=== PATIENT | female | born 1930 | race Caucasian/White ===

== ENCOUNTER 2017-03-17 21:33 | Emergency (ER) | payer MEDICARE ==
--- NOTE | 2017-03-17 22:22 | RAD ---
SEMIUPRIGHT PORTABLE FRONTAL CHEST RADIOGRAPH 03/17/17 COMPARISON: 12/07/15 HISTORY: Nonproductive cough, runny nose. FINDINGS: There is prominence of the cardiac silhouette, stable. There is pulmonary vascular congestion with p erihilar and bibasilar interstitial prominence, new. IMPRESSION: Findings suggesting interval development of interstitial pulmonary edema. Interstitial infectious pr ocess less likely. Followup imaging following treatment advised. POS: [facility]
[2017-03-17 22:49] LABS: #Basophils 0.1 thou/uL (0.0-0.2); #Lymphocytes 1.1 thou/uL (1.20-3.40); #Monocytes 0.5 thou/uL (0.11-0.59); #Neutrophils 3.9 thou/uL (1.40-6.50); %Eosinophils 0.8 % (0.0-10.0); %Lymphocytes 19.7 % (21.0-51.0); %Monocytes 9.5 % (0.0-10.0); %Neutrophils 69.1 % (42.0-75.0); Hemoglobin 12.2 g/dL (12.0-16.0); Mean Corpuscular HGB CONC 33.7 g/dL (32.0-36.0); Mean Corpuscular Hemoglobin 29.8 pg (27.0-31.0); Mean Corpuscular Volume 88.4 fl (81.0-99.0); Mean Platelet Volume 9.4 fL (7.4-10.4); Platelet Count 122 thou/uL (130-400); RBC Distribution Width 13.5 % (11.5-14.5); Red Blood Cell (RBC) Count 4.11 mill/uL (4.20-5.40); White Blood Cell (WBC) Count 5.6 thou/uL (4.8-10.8)
[2017-03-17 23:11] LABS: Anion Gap 14 mmol/L (10-20); BUN (Urea Nitrogen) 21 mg/dL (9.8-20.1); CKMB 3.8 ng/mL (0-6.6); Calc. Creatinine Clearance 0 mL/min (70-130); Carbon Dioxide 23 mmol/L (23-31); Chloride 102 mmol/L (98-107); Estimated GFR-MDRD 47; Potassium 4.2 mmol/L (3.5-5.1); Sodium 135 mmol/L (136-145); Troponin I 0.087 ng/mL (< 0.028)
[2017-03-17 23:12] LABS: ALT (SGPT) 32 U/L (8-55); AST (SGOT) 33 U/L (5-34); Albumin 3.9 g/dL (3.4-4.8); Alkaline Phosphatase 122 U/L (40-150); Bilirubin, Total 0.8 mg/dL (0.2-1.2); CK (CPK) 121 U/L (29-168); Calcium 9.3 mg/dL (7.8-10.44); Globulin 3.1 g/dL (2.4-3.5); Glucose 146 mg/dL (83-110)
[2017-03-17] MEDS ORDERED: Furosemide 40 MG/4 ML VIAL ONE (23:31)
[2017-03-18 00:46] LABS: Bilirubin Negative (Negative); Blood, Urine Negative (Negative); Clarity Clear (Clear); Glucose, Urine (Dipstick) Negative (Negative); Leukocyte Negative (Negative); Nitrite Negative (Negative); Protein, Urine (Dipstick) Negative (Neg-Trace)
== END 2017-03-18 00:50 | disposition short-term general hospital (02) ==
LOC: NAV ERS 21:33
DX: I11.0 Hypertensive heart disease with heart failure (principal); I50.9 Heart failure, unspecified; E78.5 Hyperlipidemia, unspecified; E78.00 Pure hypercholesterolemia, unspecified; F41.9 Anxiety disorder, unspecified; F32.9 Major depressive disorder, single episode, unspecified; Z79.899 Other long term (current) drug therapy; Z79.82 Long term (current) use of aspirin
CPT/HCPCS: 36415; 71010; 80053; 81003; 82553; 83880; 84484; 85025; 93005; 94760; 96374; J1940; J7620